=== PATIENT | female | born 1960 | race Caucasian/White ===

== ENCOUNTER 2020-11-26 09:59 | Outpatient (REF) | payer OTHER, SELFPAY ==
[2020-11-26 11:06] LABS: MANUAL DIFF FLAG NO
[2020-11-26 11:10] LABS: Basophils Absolute Auto 0.1 X10*3/uL (0.0-0.2); Basophils Percent Auto 0.8 % (0-2); Eosinophils Absolute Auto 0.3 X10*3/uL (0.0-0.4); Eosinophils Percent Auto 2.9 % (0-4); Hematocrit 39.7 % (37-47); Hemoglobin 13.7 g/dl (12.0-16.0); Imm Gran Abs Auto 0.02 X10*3/uL (0.00-0.03); Imm Gran Pct Auto 0.2 % (0.0-0.4); Lymphocytes Absolute Auto 2.6 X10*3/uL (1.2-4.9); Lymphocytes Percent Auto 29.3 % (20-40); Mean Corpuscular HGB Conc 34.5 g/dl (31.0-35.0); Mean Corpuscular Hemoglobin 30.9 pg (27.0-33.0); Mean Corpuscular Volume 89.6 fL (80-98); Mean Platelet Volume 10.3 fL (9.4-12.3); Monocytes Absolute Auto 0.7 X10*3/uL (0.1-1.2); Monocytes Percent Auto 7.9 % (2-11); Neutrophils Absolute Auto 5.1 X10*3/uL (2.0-8.3); Neutrophils Percent Auto 58.9 % (45-73); Platelet Count 284 X10*3/uL (160-400); Red Blood Count 4.43 X10*6/uL (4.20-5.50); Red Cell Distribution Width 12.4 % (11.0-16.0); White Blood Count 8.7 X10*3/uL (4.8-10.8)
[2020-11-26 11:39] LABS: Alanine Aminotransferase 45 U/L (0-31); Albumin Level 4.4 g/dL (3.5-5.0); Alkaline Phosphatase 76 U/L (39-117); Anion Gap 11 (12-20); Aspartate Amino Transferase 30 U/L (5-31); Bilirubin Total 0.9 mg/dL (0.0-1.0); Blood Urea Nitrogen 10 mg/dL (9-16); Calcium 9.5 mg/dL (8.4-10.2); Carbon Dioxide 28 mmol/L (22-29); Chloride 107 mmol/L (96-108); Cholesterol 149 mg/dL; Estimated Glomerular Filt Rate > 60; Glucose Fasting 105 mg/dL (60-99); HDL Cholesterol 38 mg/dL; LDL Cholesterol Calculated 90 mg/dl; Potassium 4.6 mmol/L (3.3-5.1); Sodium 141 mmol/L (135-145); Total Protein 7.1 g/dL (6.5-8.0); Triglycerides 106 mg/dL
[2020-11-26 12:02] LABS: Vitamin D 25-OH Total 47.3 ng/mL (>30)
== END 2020-11-26 10:00 | disposition home or self-care (01) ==
LOC: HO.LAB 09:59
PROVIDERS: PCP Internal Medicine; Visit Provider Internal Medicine
DX: Z00.00 Encounter for general adult medical examination without abnormal findings (principal); E55.9 Vitamin D deficiency, unspecified
CPT/HCPCS: 36415; 80053; 80061; 82306; 85025

== ENCOUNTER 2021-02-22 07:19 | Outpatient (REF) | payer OTHER, SELFPAY ==
--- NOTE | ~2021-02-22 | MM_ITS ---
EXAMINATION: MM SCREENING DIGITAL BREAST TOMOSYNTHESIS, BILATERAL CLINICAL INFORMATION: Screening. Asymptomatic. The lifetime risk of breast cancer based on the Tyrer-Cuzick Model is 8%. COMPARISON: Mammography: 02/17/2020, 02/11/2019, 11/11/2016; bilateral targeted breast ultrasound 02/19/2020. TECHNIQUE: Digital breast tomosynthesis is performed in both the craniocaudal and mediolateral oblique views along with computer-aided detection (CAD). Synthesized 2D images are generated from the tomosynthesis. FINDINGS: The breasts are heterogeneously dense, which may obscure small masses (ACR BI-RADS breast composition Category c). There is fine fibronodular parenchymal pattern with parenchymal distribution is similar to prior studies. There is no interval significant mass or architectural abnormality. Again, there are benign appearing smooth circumscribed masses at posterior central 4:00 left breast with adjacent satellite cyst and retroareolar right breast. There are diffuse scattered bilateral similar appearing round and some coarse calcifications, more numerous on left. Calcifications are slightly increased since 2019. No focal grouping. The axilla and skin contours are unremarkable. No significant changes from prior exam. MM/MM tomosynthesis screening BI IMPRESSION: No mammographic evidence of malignancy. ASSESSMENT: BI-RADS 2: Benign RECOMMENDATION: Routine annual mammography screening. This patient's information was entered into a reminder system with a target due date for their next mammogram.
== END 2021-02-22 07:20 | disposition home or self-care (01) ==
LOC: HO.MAMMO 07:19
PROVIDERS: PCP Internal Medicine; Visit Provider Internal Medicine
DX: Z12.31 Encounter for screening mammogram for malignant neoplasm of breast (principal)
CPT/HCPCS: 77063; 77067

== ENCOUNTER 2021-10-20 15:36 | Outpatient (REF) | payer OTHER, SELFPAY ==
[2021-10-20 16:22] LABS: Influenza A PCR NEGATIVE (Negative); Influenza B PCR NEGATIVE (Negative); Resp Syncy Virus RNA Qual PCR NEGATIVE (Negative); SARS COV2 PCR INHOUSE NEGATIVE (Negative)
== END 2021-10-20 15:37 | disposition home or self-care (01) ==
LOC: HO.LNP 15:36
PROVIDERS: Visit Provider Internal Medicine
DX: Z20.822 Contact with and (suspected) exposure to COVID-19 (principal); R05.9 Cough, unspecified
CPT/HCPCS: 0241U

== ENCOUNTER 2022-02-28 07:18 | Outpatient (REF) | payer OTHER, SELFPAY ==
--- NOTE | ~2022-02-28 | MM_ITS ---
EXAMINATION: MM SCREENING DIGITAL BREAST TOMOSYNTHESIS, BILATERAL CLINICAL INFORMATION: Screening. Asymptomatic. The lifetime risk of breast cancer based on the Tyrer-Cuzick Model is 0.9%. COMPARISON: Mammography: February 22, 2021 and studies dating back to September 06, 2012 TECHNIQUE: Digital breast tomosynthesis is performed in both the craniocaudal and mediolateral oblique views along with computer-aided detection (CAD). Synthesized 2D images are generated from the tomosynthesis. Additional left breast exaggerated craniocaudal view performed. FINDINGS: The breasts are extremely dense, which lowers the sensitivity of mammography (ACR BI-RADS breast composition Category d). There is stable multiplicity and bilaterality of calcifications. There are some circumscribed waxing and waning densities present consistent with cysts. No new suspicious dominant mass or suspicious grouping of calcifications is identified. MM/MM tomosynthesis screening BI IMPRESSION: No significant changes from prior exam. ASSESSMENT: BI-RADS 2: Benign RECOMMENDATION: Routine annual mammography screening. This patient's information was entered into a reminder system with a target due date for their next mammogram.
== END 2022-02-28 07:19 | disposition home or self-care (01) ==
LOC: HO.MAMMO 07:18
PROVIDERS: PCP Internal Medicine; Visit Provider Internal Medicine
DX: Z12.31 Encounter for screening mammogram for malignant neoplasm of breast (principal)
CPT/HCPCS: 77063; 77067

== ENCOUNTER 2022-07-28 08:07 | Outpatient (REF) | payer OTHER, SELFPAY ==
[2022-07-28 08:19] LABS: MANUAL DIFF FLAG NO
[2022-07-28 08:50] LABS: Basophils Absolute Auto 0.1 X10*3/uL (0.0-0.2); Basophils Percent Auto 1.1 % (0-2); Eosinophils Absolute Auto 0.9 X10*3/uL (0.0-0.4); Eosinophils Percent Auto 9.7 % (0-4); Hematocrit 40.8 % (37.0-47.0); Hemoglobin 14.3 g/dl (12.0-16.0); Imm Gran Abs Auto 0.03 X10*3/uL (0.00-0.03); Imm Gran Pct Auto 0.3 % (0.0-0.4); Lymphocytes Absolute Auto 3.1 X10*3/uL (1.2-4.9); Lymphocytes Percent Auto 34.7 % (20-40); Mean Corpuscular Hemoglobin 30.2 pg (27.0-33.0); Mean Corpuscular Volume 86.1 fL (80.0-98.0); Mean Platelet Volume 9.9 fL (9.4-12.3); Monocytes Absolute Auto 0.7 X10*3/uL (0.1-1.2); Monocytes Percent Auto 7.2 % (2-11); Neutrophils Absolute Auto 4.3 x10*3/uL (2.0-8.3); Platelet Count 312 X10*3/uL (160-400); Red Blood Count 4.74 X10*6/uL (4.20-5.50); Red Cell Distribution Width 12.2 % (11.0-16.0); White Blood Count 9.1 X10*3/uL (4.8-10.8)
[2022-07-28 09:33] LABS: Alanine Aminotransferase 17 U/L (0-31); Albumin Level 4.4 g/dL (3.5-5.0); Alkaline Phosphatase 76 U/L (39-117); Anion Gap 14 (12-20); Aspartate Amino Transferase 16 U/L (5-31); Bilirubin Total 1.2 mg/dL (0.0-1.0); Blood Urea Nitrogen 10 mg/dL (9-16); Calcium 9.6 mg/dL (8.4-10.2); Carbon Dioxide 27 mmol/L (22-29); Chloride 104 mmol/L (96-108); Cholesterol 149 mg/dL; Estimated Glomerular Filt Rate > 60; Glucose Fasting 104 mg/dL (60-99); HDL Cholesterol 35 mg/dL; LDL Cholesterol Calculated 91 mg/dl; Sodium 141 mmol/L (135-145); Total Protein 7.2 g/dL (6.5-8.0); Triglycerides 116 mg/dL
== END 2022-07-28 08:08 | disposition home or self-care (01) ==
LOC: HO.LAB 08:07
PROVIDERS: PCP Internal Medicine; Visit Provider Internal Medicine
DX: Z00.00 Encounter for general adult medical examination without abnormal findings (principal)
CPT/HCPCS: 36415; 80053; 80061; 85025

== ENCOUNTER → 2022-10-05 08:54 | Outpatient (BNVA) | payer OTHER, SELFPAY | PROVIDERS: PCP Internal Medicine; Referring Provider Internal Medicine; Visit Provider Surgery | DX: Z13.89 Encounter for screening for other disorder (principal) ==

== ENCOUNTER 2022-11-07 06:06 | Day surgery (SDC) | payer OTHER, SELFPAY ==
[2022-11-02 15:45] VITALS: BMI 37.7
--- NOTE | 2022-11-06 09:01 | P.CONAN_ITS ---
Documented by User: Nita Deng NP 11/06/22 09:03 HPI - Anesthesia Eval Consult details Narrative: 62yo F for Colonoscopy with possible polypectomy PMFSH Active Problems Active Problems: All Active Problems (Updated 10/05/22 @ 09:09 by Ori Vasquez MD) Colon cancer screening (Acute) Past Medical History Medical History (Updated 11/07/22 @ 06:27 by Vicenta Eng RN) Colon cancer screening HTN (hypertension) Hyperlipemia Seasonal asthma Surgical History Surgical History (Updated 11/07/22 @ 06:28 by Vicenta Eng RN) Hx of colonoscopy Hx of foot surgery Social History Social History (Updated 10/05/22 @ 09:04 by Taty Braswell CMA) Household Members: Children Alcohol intake: current Alcohol intake frequency: holidays/special occasions only Patient Tobacco Use Status: Never used Tobacco Are you DNR?: No Advance Directives: No Advance Directives Information Provided: Yes Meds Allergies Allergy/AdvReac Type Severity Reaction Status Date / Time No Known Allergies Allergy Unverified 10/05/22 09:05 Home Medications Medication Instructions Recorded Confirmed Last Taken Type albuterol sulfate 90 mcg/actuation 2 puff inhalation QID PRN Wheezing 10/05/22 10/05/22 11/07/22 History aerosol inhaler atorvastatin 10 mg tablet 10 mg PO DAILY 10/05/22 10/05/22 11/06/22 History clobetasol 0.05 % topical ointment g topical BID 10/05/22 10/05/22 11/05/22 History lisinopril 10 mg tablet 10 mg PO DAILY 10/05/22 10/05/22 11/06/22 History zolpidem 10 mg tablet 10 mg PO 10/05/22 10/05/22 11/05/22 History Exam Exam Date and Time: November 06, 2022 09 Height,Weight and Vital Signs: Height 5 ft 9.5 in Weight 117.48 kg Pertinent Lab Results Pertinent Lab Results: Laboratory Tests 07/28/22 07/28/22 08:18 08:18 WBC 9.1 Hgb 14.3 Hct 40.8 Plt Count 312 Sodium 141 Potassium 4.0 Chloride 104 Carbon Dioxide 27 BUN 10 Creatinine 0.95 Assessment and Plan Assessment Anesthesia Assessment: Chart Reviewed Documented by User: Sam Lowe MD 11/07/22 07:39 [facility] Past Medical History Medical History (Updated 11/07/22 @ 06:27 by Vicenta Eng RN) Colon cancer screening HTN (hypertension) Hyperlipemia Seasonal asthma Family History Family history of problems with anesthesia: No Surgical History Surgical History (Updated 11/07/22 @ 06:28 by Vicenta Eng RN) Hx of colonoscopy Hx of foot surgery History of Problems with Anesthesia: No Social History Social History (Updated 10/05/22 @ 09:04 by Taty Braswell CMA) Household Members: Children Alcohol intake: current Alcohol intake frequency: holidays/special occasions only Patient Tobacco Use Status: Never used Tobacco Are you DNR?: No Advance Directives: No Advance Directives Information Provided: Yes Meds Allergies Allergy/AdvReac Type Severity Reaction Status Date / Time No Known Allergies Allergy Unverified 10/05/22 09:05 Home Medications Medication Instructions Recorded Confirmed Last Taken Type albuterol sulfate 90 mcg/actuation 2 puff inhalation QID PRN Wheezing 10/05/22 10/05/22 11/07/22 History aerosol inhaler atorvastatin 10 mg tablet 10 mg PO DAILY 10/05/22 10/05/22 11/06/22 History clobetasol 0.05 % topical ointment g topical BID 10/05/22 10/05/22 11/05/22 History lisinopril 10 mg tablet 10 mg PO DAILY 10/05/22 10/05/22 11/06/22 History zolpidem 10 mg tablet 10 mg PO 10/05/22 10/05/22 11/05/22 History Exam Airway Mallampati Class: I TM Dist: >3cm Neck ROM: Full Heart: ok Lungs: ok Assessment and Plan Assessment Anesthesia Assessment: Anesthesia Plan Discussed Final Anesthetic Review Family History of Problems with Anesthesia: No History of Problems with Anesthesia: No NPO: Yes ASA Class: II Final Preanesthetic Review: No Changes in Pt Med Stat, Meds/Allgs Chart Reviewed, Consent Obtained/Reviewed and Anes Risks/Benef Reviewed Patient Risk: Intermediate Procedure Risk: Low Anesthetic Plan Anesthetic Plan: MAC: and Agree w/ Assess. and Plan Disposition: Standard PACU
[2022-11-07 06:10] VITALS: BP 113/84; PULSE 110; RESP 20; TEMP 36.6; O2SAT 97
[2022-11-07] MEDS: Lactated Ringers 1,000 ML 100 ML IVCONT (06:36)
--- NOTE | 2022-11-07 07:12 | MHC.SHP ---
Pre-Procedural Eval Section A Date of Service: 11/07/22 Section B Chief Complaint: Encounter for screening for malignant neoplasm of Details of Present Illness: for screening colonoscopy, no GI complaints Relevant Family History (Specify if Yes): No Relevant Social History: None Present Medications: see Short Stay Collaborative assessment Medical History: Significant History (HTN, hyperlipidemia) Allergies: Allergies Allergy/AdvReac Type Severity Reaction Status Date / Time No Known Allergies Allergy Unverified 10/05/22 09:05 Review of Systems Sugical H&P ROS: Negative: Constitution, Cardiovascular, Respiratory, Neurological, Psychiatric, Hem-Onc, Allergic/Immunologic, Gastrointestinal, Genitourinary, Musculoskeletal, Integumentary, Endocrine and Eyes/Ears/Nose/Throat Exam Surgical H&P Exam: Normal: HEENT, Normal: Heart, Normal: Lungs, Normal: Extremities, Normal: Abdomen, Normal: Skin and Normal: Neurological Plan Diagnosis/Plan: Unchanged I have reviewed the history and physical and performed a pertinent physical examination on my patient. No changes have occurred unless specified. Time Spent With Patient Time: Total time managing care of this patient today ____ minutes.
--- NOTE | 2022-11-07 07:55 | W.PM.OPN ---
Operative Note Operative Note Date of Service: 11/07/22 Narrative: Preop diagnosis: Colon cancer screening Postop diagnosis: Normal colonoscopy findings Procedure: Colonoscopy for screening Surgeon: Ori Vasquez MD The patient is a 62-year-old female here for screening colonoscopy. She understood the technique of the procedure. She was aware of the risks, benefits, and alternatives She was brought to the operating room. She was placed in left lateral decubitus position under monitored anesthesia care. A full digital rectal exam was done. There were no palpable anal lesions. The tip of the Olympus colonoscope was gently introduced through the anal orifice and advanced with insufflation all the way to the cecum. The cecum was intubated. The cecum was identified by visualization of the ileocecal valve as well as the appendiceal orifice. The cecal mucosa was unremarkable. The scope was slowly withdrawn with careful examination of the entire colonic mucosa being done with scope withdrawal. The patient had good bowel prep so it was unlikely that any lesion may have been missed. The rectum was reached. There were no lesions seen we the anal canal was unremarkable. The scope was then withdrawn completely with desufflation The patient tolerated the procedure well. There were no immediate complications. She falls at average risk for colon cancer so her next colonoscopy may be in the next 10 years..
[2022-11-07 08:01] VITALS: BP 92/58; PULSE 85; RESP 18; TEMP 36.4; O2SAT 94
[2022-11-07 08:16] VITALS: BP 111/75; PULSE 75; RESP 16; TEMP 35.9; O2SAT 95
== END 2022-11-07 08:44 | disposition home or self-care (01) ==
PROVIDERS: PCP Internal Medicine; Visit Provider Surgery
PROC: 0DJD8ZZ Inspection of Lower Intestinal Tract, Via Natural or Artificial Opening Endoscopic (ICD-10-PCS; CPT 45378; principal; 2022-11-07 07:30)
DX: Z12.11 Encounter for screening for malignant neoplasm of colon (principal); I10 Essential (primary) hypertension; E78.5 Hyperlipidemia, unspecified; J45.909 Unspecified asthma, uncomplicated; Z79.899 Other long term (current) drug therapy
CPT/HCPCS: 45378

== ENCOUNTER → 2022-11-20 10:28 | Outpatient (BNVA) | payer OTHER, SELFPAY | PROVIDERS: PCP Internal Medicine; Visit Provider Surgery ==

== ENCOUNTER 2023-03-09 07:36 | Outpatient (REF) | payer OTHER, SELFPAY ==
--- NOTE | ~2023-03-09 | MM_ITS ---
EXAMINATION: MM SCREENING DIGITAL BREAST TOMOSYNTHESIS, BILATERAL CLINICAL INFORMATION: Screening. Asymptomatic. COMPARISON: Mammography: This study is compared with prior exams dating back to 2019. TECHNIQUE: Digital breast tomosynthesis is performed in both the craniocaudal and mediolateral oblique views along with computer-aided detection (CAD). Synthesized 2D images are generated from the tomosynthesis. FINDINGS: The breasts are heterogeneously dense, which may obscure small masses (ACR BI-RADS breast composition Category c). There are no significant masses, abnormal calcifications, or other abnormalities. There are a few, bilateral, well-circumscribed, waxing and waning masses which are benign and consistent with cysts. There are scattered benign calcifications in each breast. MM/MM tomosynthesis screening BI IMPRESSION: No mammographic evidence of malignancy. ASSESSMENT: BI-RADS BI-RADS 2 - Benign Findings RECOMMENDATION: Routine annual mammography screening. 1 year F/U This examination should not preclude the clinical evaluation of a suspicious palpable abnormality. This patient's information was entered into a reminder system with a target due date for their next mammogram.
== END 2023-03-09 07:37 | disposition home or self-care (01) ==
LOC: HO.MAMMO 07:36
PROVIDERS: PCP Internal Medicine; Visit Provider Internal Medicine
DX: Z12.31 Encounter for screening mammogram for malignant neoplasm of breast (principal)
CPT/HCPCS: 77063; 77067

== ENCOUNTER → 2023-03-09 07:45 | Outpatient (BNV) | payer OTHER, SELFPAY | PROVIDERS: PCP Internal Medicine; Visit Provider Radiology Diagnostic Radiology | DX: Z12.31 Encounter for screening mammogram for malignant neoplasm of breast (principal) | CPT/HCPCS: 77063; 77067 ==

== ENCOUNTER 2023-07-27 14:05 | Outpatient (REF) | payer OTHER, SELFPAY ==
--- NOTE | ~2023-07-27 | XR_ITS ---
EXAMINATION: XR CHEST CLINICAL INFORMATION: Right chest wall pain. COMPARISON: 04/23/2015. TECHNIQUE: 2 views of the chest were obtained. FINDINGS: Redemonstration of low lung volumes. There is no gross pneumothorax. S-shaped thoracolumbar scoliosis with multilevel degenerative changes. Heart size upper limits of normal allowing for low lung volumes. No pleural effusion. Increased retrocardiac opacity, best appreciated on the lateral view, possibly representing pneumonia. XR/XR chest 2V IMPRESSION: Increased retrocardiac opacity, best appreciated on the lateral view, possibly representing pneumonia. Correlation with clinical exam recommended to determine further management. Recommend follow-up imaging in 4-6 weeks to confirm resolution and exclude underlying pathology. This study was presented today July 31, 2023 for interpretation. PSA staff will provide results to referring provider at this time.
--- NOTE | ~2023-07-27 | XR_ITS ---
EXAMINATION: XR SHOULDER, RIGHT CLINICAL INFORMATION: Right shoulder pain COMPARISON: None available. TECHNIQUE: AP external rotation, Grashey, scapular Y, and axillary views of the right shoulder. FINDINGS: Acromioclavicular joint space narrowing. No fracture or dislocation. Visualized ribs and right lung are unremarkable. XR/XR shoulder RT min 2V IMPRESSION: Degenerative change right AC joint. No acute bony pathology.
== END 2023-07-27 14:06 | disposition home or self-care (01) ==
LOC: HO.XRAY 14:05
PROVIDERS: PCP Internal Medicine; Visit Provider Internal Medicine
DX: R07.89 Other chest pain (principal); M25.511 Pain in right shoulder
CPT/HCPCS: 71046; 73030

== ENCOUNTER 2023-08-09 07:34 | Outpatient (REF) | payer OTHER, SELFPAY ==
[2023-08-09 11:14] LABS: MANUAL DIFF FLAG NO
[2023-08-09 11:47] LABS: Basophils Absolute Auto 0.1 X10*3/uL (0.0-0.2); Basophils Percent Auto 1.2 % (0-2); Eosinophils Absolute Auto 0.3 X10*3/uL (0.0-0.4); Eosinophils Percent Auto 3.3 % (0-4); Estimated Average Glucose 108 mg/dL; Hematocrit 40.1 % (37.0-47.0); Hemoglobin 13.7 g/dl (12.0-16.0); Hemoglobin A1c % 5.4 % (<6.0); Imm Gran Abs Auto 0.02 X10*3/uL (0.00-0.03); Imm Gran Pct Auto 0.3 % (0.0-0.4); Lymphocytes Absolute Auto 2.6 X10*3/uL (1.2-4.9); Lymphocytes Percent Auto 34.8 % (20-40); Mean Corpuscular HGB Conc 34.2 g/dl (31.0-35.0); Mean Corpuscular Hemoglobin 30.1 pg (27.0-33.0); Mean Corpuscular Volume 88.1 fL (80.0-98.0); Monocytes Absolute Auto 0.6 X10*3/uL (0.1-1.2); Monocytes Percent Auto 8.2 % (2-11); Neutrophils Percent Auto 52.2 % (45-73); Platelet Count 283 X10*3/uL (160-400); Red Blood Count 4.55 X10*6/uL (4.20-5.50); Red Cell Distribution Width 12.5 % (11.0-16.0); White Blood Count 7.6 X10*3/uL (4.8-10.8)
[2023-08-09 12:09] LABS: Alanine Aminotransferase 19 U/L (0-31); Albumin Level 4.1 g/dL (3.5-5.0); Alkaline Phosphatase 79 U/L (39-117); Anion Gap 11 (12-20); Aspartate Amino Transferase 17 U/L (5-31); Bilirubin Total 0.8 mg/dL (0.0-1.0); Blood Urea Nitrogen 13 mg/dL (9-16); Calcium 9.4 mg/dL (8.4-10.2); Carbon Dioxide 29 mmol/L (22-29); Chloride 107 mmol/L (96-108); Cholesterol 133 mg/dL (<200); Estimated Glomerular Filt Rate > 60; Glucose Fasting 103 mg/dL (60-99); HDL Cholesterol 42 mg/dL (>40); LDL Cholesterol Calculated 76 mg/dL (<100); Potassium 4.2 mmol/L (3.3-5.1); Sodium 143 mmol/L (135-145); Total Protein 7.1 g/dL (6.5-8.0); Triglycerides 76 mg/dL (<150)
[2023-08-09 12:31] LABS: Vitamin D 25-OH Total 43.6 ng/mL (>30)
== END 2023-08-09 07:35 | disposition home or self-care (01) ==
LOC: HO.HMGCLDS 07:34
PROVIDERS: PCP Internal Medicine; Visit Provider Internal Medicine
DX: I10 Essential (primary) hypertension (principal); E78.00 Pure hypercholesterolemia, unspecified; K21.9 Gastro-esophageal reflux disease without esophagitis; R73.03 Prediabetes; E55.9 Vitamin D deficiency, unspecified
CPT/HCPCS: 36415; 80053; 80061; 82306; 83036; 85025

== ENCOUNTER 2023-09-06 07:06 | Outpatient (REF) | payer OTHER, SELFPAY ==
--- NOTE | ~2023-09-06 | CT_ITS ---
EXAMINATION: CT CHEST WITHOUT CONTRAST CLINICAL INFORMATION: Pain in the right chest wall COMPARISON: None available. TECHNIQUE: Multidetector volumetric CT imaging of the chest was done. Axial MIP volume rendering provided. Sagittal and coronal reformatted images were obtained. This CT examination was performed using dose optimization techniques as appropriate, variously including the following: *Automated exposure control *Adjustment of mA and/or kV according to patient size (this includes techniques or standardized protocols for targeted exams where dose is matched to indication/reason for exam; i.e. extremities or head) *Use of iterative reconstruction technique DLP: 228 mGy-cm FINDINGS: CAREER SERVICES OFFICER: Unremarkable LUNGS: The lungs are clear with no evidence of inflammation or nodules. MEDIASTINUM: The mediastinum is normal. CORONARY ARTERY CALCIFICATION: None visualized on this study. PLEURA: There is no pleural effusion. No pleural mass or thickening. AXILLA: No lymphadenopathy. UPPER ABDOMEN: The small hiatal hernia. Visualized liver, spleen, adrenal glands, pancreas, liver kidneys are normal. There is cholelithiasis. OSSEOUS STRUCTURES: Mild degenerative changes in thoracic spine with mild kyphotic deformity CT/CT chest wo IV con IMPRESSION: 1. No abnormal findings in the chest. 2. Cholelithiasis. 3. Small hiatal hernia. Fleischner guidelines were followed.
== END 2023-09-06 07:07 | disposition home or self-care (01) ==
LOC: HO.CT 07:06
PROVIDERS: PCP Internal Medicine; Visit Provider Internal Medicine
DX: R07.89 Other chest pain (principal)
CPT/HCPCS: 71250

== ENCOUNTER 2024-01-15 08:14 | Outpatient (AMB) | payer OTHER, SELFPAY ==
[2024-01-15 08:16] VITALS: BP 142/84; PULSE 100; TEMP 36.6; O2SAT 94; BMI 36.5
--- NOTE | 2024-01-15 08:16 | MHC.OFFWIV ---
Intake Vital Signs 01/15/24 08:16 Height 5 ft 9.5 in Weight 251 lb 2 oz BMI 36.5 BP 142/84 H Blood Pressure Location Lt brachial Position Sitting Pulse 100 Pulse Source Pulse Oximeter Temp 97.9 F Temp Source Temporal Artery Scan Pulse Oximetry (%) 94 Oxygen Delivery Method Room Air Intake Visit Reasons: EP rt foot pain fell last night Intake Note: pt is here for right foot pain due to fall last night Patient Tobacco Use Status: Never used Tobacco Allergies No Known Allergies Allergy (Verified 01/15/24 08:16) Do you need a note to return to daycare/school/sports/work: No HPI HPI Comments History of Present Illness Details Patient is a 63-year-old female complaining of right foot pain after sustaining a fall last night. Patient states she was chasing her dog into the [place] and she tripped and fell, injuring her right ankle and the right side of her foot. She is able to walk on it but it is extremely painful. She said it was very painful as initially did not last night and it has stayed that way. She denies a lot of swelling in the area and has not really done anything to make it better. Walking on it makes it worse. PFSH Medical History Colon cancer screening HTN (hypertension) Hyperlipemia Seasonal asthma Surgical History Hx of colonoscopy (~11/07/22) Hx of foot surgery Social History Household Members: Children Alcohol intake: current Alcohol intake frequency: holidays/special occasions only Patient Tobacco Use Status: Never used Tobacco Review of Systems Const All systems reviewed & are unremarkable except as noted in HPI and below Physical Exam Vital Signs: Last Vital Signs Temp 97.9 F 01/15/24 08:16 Pulse 100 01/15/24 08:16 BP 142/84 H 01/15/24 08:16 Pulse Ox 94 01/15/24 08:16 Oxygen Delivery Method Room Air 01/15/24 08:16 BMI result Body Mass Index 36.5 Const General: cooperative, healthy appearing, comfortable and no acute distress Orientation/consciousness: patient oriented x3 Limitations: other limitations (gingerly walking, favoring left foot) HEENT Head: Yes normal to inspection Resp Effort & Inspection: normal respiratory effort and able to speak in complete sentences Neuro General: patient oriented x3 Extrem Right lower extremity: foot Details: normal capillary refill, normal to inspection, tenderness Location: of the lateral foot, of the mid foot and of the base of the 5th metatarsal, toes with normal ROM, no edema, vascular exam Details: dorsalis pedis pulse present, posterior tibial pulse present and normal capillary refill and motor-sensory exam Details: light-touch normal; no unusual warmth, no abrasion, no laceration and no ecchymosis Assessment & Plan Assessment & Plan (1) Right foot pain: Code(s): M79.671 - Pain in right foot Plan: No fracture seen on x-ray, still waiting for final read by radiologist. Did fit patient for a boot because she was having difficulty walking on it. Recommended RICE treatment and follow-up with PCP if pain continues for orthopedics referral (2) Fall: Code(s): W19.XXXA - Unspecified fall, initial encounter Qualifiers: Encounter type: initial encounter Qualified Code(s): W19.XXXA - Unspecified fall, initial encounter Plan: see above (3) Right foot sprain: Code(s): S93.601A - Unspecified sprain of right foot, initial encounter Qualifiers: Encounter type: initial encounter Qualified Code(s): S93.601A - Unspecified sprain of right foot, initial encounter Plan: see above Plan see above Orders: Orders XR foot RT min 3V Today M79.671 - Pain in right foot, W19.XXXA - Unspecified fall, initial encounter Coding Level of Care Code Est Pt Level 4 (50913) Diagnoses Right foot pain M79.671 Fall, initial encounter W19.XXXA Encounter type: initial encounter Sprain of right foot, initial encounter S93.601A Encounter type: initial encounter
== END 2024-01-15 09:02 | disposition home or self-care (01) ==
PROVIDERS: PCP Internal Medicine; Visit Provider Physician Assistant
DX: M79.671 Pain in right foot (principal); W19.XXXA Unspecified fall, initial encounter; S93.601A Unspecified sprain of right foot, initial encounter
CPT/HCPCS: 99214

== ENCOUNTER 2024-01-15 08:37 | Outpatient (REF) | payer OTHER, SELFPAY ==
--- NOTE | ~2024-01-15 | XR_ITS ---
EXAMINATION: XR FOOT, RIGHT CLINICAL INFORMATION: Pain COMPARISON: None available. TECHNIQUE: AP, lateral, and oblique views of the right foot. FINDINGS: No acute visible fracture or dislocation. Mild multi joint arthritic changes. Plantar calcaneal heel spur. Spurring along the dorsal talus. Joint space alignment otherwise maintained. Soft tissue prominence along the plantar aspect of the metatarsophalangeal joints. XR/XR foot RT min 3V IMPRESSION: 1. No acute visible fracture or dislocation. 2. Mild multi joint arthritic changes. 3. Soft tissue prominence along the plantar aspect of the metatarsophalangeal joints.
== END 2024-01-15 08:38 | disposition home or self-care (01) ==
LOC: HO.HMGCX 08:37
PROVIDERS: PCP Internal Medicine; Visit Provider Physician Assistant
DX: M79.671 Pain in right foot (principal); Z91.81 History of falling
CPT/HCPCS: 73630

== ENCOUNTER 2024-03-17 07:39 | Outpatient (REF) | payer OTHER, SELFPAY ==
--- NOTE | ~2024-03-17 | MM_ITS ---
EXAMINATION: MM SCREENING DIGITAL BREAST TOMOSYNTHESIS, BILATERAL CLINICAL INFORMATION: Screening. Asymptomatic. COMPARISON: Mammography: Comparison is made with available priors TECHNIQUE: Digital breast mammography with tomosynthesis is performed in both the craniocaudal and mediolateral oblique views along with computer-aided detection (CAD). FINDINGS: The breasts are heterogeneously dense, which may obscure small masses (ACR BI-RADS breast composition Category c). Bilateral circumscribed oval masses which wax and wane consistent with benign cysts and fibrocystic changes, some were demonstrated to be simple cysts on prior ultrasounds. Left: There are no significant masses, abnormal calcifications, or other abnormalities. Right: Asymmetry superior breast posterior depth on the MLO view. No suspicious calcifications or other abnormal findings. MM/MM tomosynthesis screening BI IMPRESSION: No mammographic evidence of malignancy. ASSESSMENT: BI-RADS BI-RADS 0 - Incomplete: Needs additional Imaging. RECOMMENDATION: 1. Additional views of the right breast 2. Targeted ultrasound if warranted after review of the additional views. 3. Radiology department staff will contact the patient for additional imaging. Additional Imaging required This examination should not preclude the clinical evaluation of a suspicious palpable abnormality. This patient's information was entered into a reminder system with a target due date for their next mammogram. Electronically signed by: Maria Kemp DO 03/31/2024 06:18 AM EDT
== END 2024-03-17 07:40 | disposition home or self-care (01) ==
LOC: HO.MAMMO 07:39
PROVIDERS: PCP Internal Medicine; Visit Provider Internal Medicine
DX: Z12.31 Encounter for screening mammogram for malignant neoplasm of breast (principal)
CPT/HCPCS: 77063; 77067

== ENCOUNTER → 2024-03-17 07:45 | Outpatient (BNV) | payer OTHER, SELFPAY | PROVIDERS: PCP Internal Medicine; Visit Provider Internal Medicine | DX: Z12.31 Encounter for screening mammogram for malignant neoplasm of breast (principal) | CPT/HCPCS: 77063; 77067 ==

== ENCOUNTER 2024-05-21 13:48 | Outpatient (REF) | payer OTHER, SELFPAY ==
--- NOTE | ~2024-05-21 | MM_ITS ---
EXAMINATION: MM DIAGNOSTIC DIGITAL BREAST TOMOSYNTHESIS, RIGHT US BREAST LIMITED, RIGHT MAMMOGRAPHY: CLINICAL INFORMATION: Diagnostic exam; follow-up for one view asymmetry far posterior upper right breast, overlying the pectoralis muscle, seen on screening mammography with no definite CC correlate although localizes laterally on tomographic imaging. COMPARISON: Mammography: Screening mammography 03/17/2024, and prior exams dating back to 2017. TECHNIQUE: Digital breast tomosynthesis is performed in the following views: 3-D full field digital right ML view, as well as a spot compression 3-D right MLO view. Computer-aided diagnosis was used for this study. This was followed by targeted right breast ultrasound. FINDINGS: The breasts are heterogeneously dense, which may obscure small masses (ACR BI-RADS breast composition Category c). This study is limited by the extensive somewhat nodular and heterogeneously dense breast tissue. Spot compression views and full field right ML view demonstrate persistence of an 8 mm round isodense circumscribed mass with a few abutting converging lines giving the appearance of possible desmoplasia. In review of older exams, this region could not be found with confidence, likely going to the nature of the underlying parenchyma. We will evaluate this region with ultrasound. ULTRASOUND: CLINICAL INFORMATION: As above. COMPARISON: None relevant. TECHNIQUE: Targeted sonographic evaluation was performed using a high frequency linear transducer. Attention was given to the upper outer quadrant of the right breast posterior depth. Selected archived documentation. FINDINGS: RIGHT BREAST: In the 10:00 axis, 15 cm nipple, there is a near anechoic cystic area measuring 0.7 x 0.3 x 0.4 cm, correlating well with the mammographic index focus of concern. This stressors no internal color Doppler flow, no posterior features or enhancement, no abutting parenchymal distortion or echogenic fatty changes, wider than tall, with circumscribed margins. This has features highly suggestive of a region of fat necrosis, with predominantly benign ultrasound features. Recommend six-month interval follow-up targeted right breast ultrasound to ensure stability of this probably benign finding. There are no additional abnormalities noted in this region. MM/MM tomosynthesis added views R IMPRESSION: -No findings suspicious for malignancy right breast. -Probably benign focus of cystic fat necrosis measuring 7 x 3 x 4 mm in the 10:00 axis of the right breast, 15 cm from the nipple. This has predominantly benign ultrasound features, and follow-up targeted right breast ultrasound and right diagnostic mammography (spot compression right MLO view, and full-field 3-D ML view) in 6 months is recommended to ensure stability. OVERALL ASSESSMENT: Mammography: BI-RADS 3 - Probably benign finding(s) - 12 month follow-up suggested Ultrasound: BI-RADS 3 - Probably benign finding(s) - 12 month follow-up suggested RECOMMENDATION: 6 Month F/U This patient's information was entered into a reminder system with a target due date for their next mammogram. Electronically signed by: Brown Jones MD 05/21/2024 03:09 PM [facility]
== END 2024-05-21 13:49 | disposition home or self-care (01) ==
LOC: HO.MAMMO 13:48
PROVIDERS: PCP Internal Medicine; Visit Provider Internal Medicine
DX: N64.89 Other specified disorders of breast (principal)
CPT/HCPCS: 76642; 77061; 77065

== ENCOUNTER → 2024-05-21 14:00 | Outpatient (BNV) | payer OTHER, SELFPAY | PROVIDERS: PCP Internal Medicine; Visit Provider Radiology Diagnostic Radiology | DX: N60.01 Solitary cyst of right breast (principal) | CPT/HCPCS: 76642; 77061; 77065 ==

== ENCOUNTER 2024-11-19 13:00 | Outpatient (REF) | payer OTHER, SELFPAY ==
--- NOTE | ~2024-11-19 | MM_ITS ---
EXAMINATION: MM DIAGNOSTIC DIGITAL BREAST TOMOSYNTHESIS, BILATERAL CLINICAL INFORMATION: 6 month follow-up for asymmetry in the superior right breast on MLO view with questioned hypoechoic sonographic correlate at 10:00 15 cm from the nipple. COMPARISON: Mammography: Priors on PACS. TECHNIQUE: Digital breast tomosynthesis is performed in both the craniocaudal and mediolateral oblique views along with computer-aided detection (CAD). Synthesized 2D images are generated from the tomosynthesis. FINDINGS: The breasts are heterogeneously dense, which may obscure small masses (ACR BI-RADS breast composition Category c). Previously seen asymmetry in the superior right breast posterior depth on MLO view is less conspicuous compared with priors. No suspicious calcifications or other abnormal findings. Targeted color Doppler ultrasound scanning in the upper outer quadrant demonstrates normal fibronodular breast tissue. There is no sonographic abnormality. MM/MM tomosynthesis diagnostic RT IMPRESSION: Asymmetry superior right breast on MLO view posterior depth without sonographic correlate today and decreased from prior. Recommend 6 month follow-up right breast mammogram when the patient will be due for bilateral mammography to demonstrate resolution or stability. ASSESSMENT: BI-RADS BI-RADS 3 - Probably benign finding(s) - 6 month follow-up suggested RECOMMENDATION: 6 Month F/U Results were provided to the patient at time of visit by the technologist. This patient's information was entered into a reminder system with a target due date for their next mammogram. Electronically signed by: Maria Kemp DO 11/19/2024 02:30 PM EDT
== END 2024-11-19 13:01 | disposition home or self-care (01) ==
LOC: HO.MAMMO 13:00
PROVIDERS: PCP Internal Medicine; Visit Provider Internal Medicine
DX: N64.1 Fat necrosis of breast (principal)
CPT/HCPCS: 76642; 77061; 77065

== ENCOUNTER → 2024-11-19 13:00 | Outpatient (BNV) | payer OTHER, SELFPAY | PROVIDERS: PCP Internal Medicine; Visit Provider Internal Medicine | DX: R92.321 Mammographic fibroglandular density, right breast (principal); N60.21 Fibroadenosis of right breast | CPT/HCPCS: 76642; 77061; 77065 ==

== ENCOUNTER 2024-12-05 09:06 | Outpatient (AMB) | payer OTHER, SELFPAY ==
[2024-12-05 09:09] VITALS: BP 122/76; PULSE 93; TEMP 36.3; O2SAT 97; BMI 38.3
--- NOTE | 2024-12-05 09:09 | A.OFFPC_ITS ---
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 Last seen by pcp aug 2023. CV: on lisinopril, atorvastatin. Blood pressure normal. Denies chest pain. Weight gain despite diet and exercise Anxiety/insomnia: on lorazapem, zolpidem Right hip/pelvic pain deep that radiates around to the lower right back. Happened when she went back to work and increased sitting but no particular injury. Overdue for pap Mammo 11/2024 u/s, needs to return in 6 months Colonoscopy -08/2022 Dr Pedro CAMPOS CONSTITUTIONAL: Denies weight loss, fever and chills. HEENT: Denies changes in vision and hearing. RESPIRATORY: Denies SOB and cough. CV: Denies palpitations and CP GI: Denies abdominal pain, nausea, vomiting and diarrhea. : Denies dysuria and urinary frequency. MSK: see HPI SKIN: Denies rash and pruritus. NEUROLOGICAL: Denies headache PSYCHIATRIC: Denies recent changes in mood. PHYSICAL EXAM: GENERAL: Alert and oriented x 3. NAD EYES: EOMI. Anicteric. HENT: Moist mucous membranes. No scleral icterus. No cervical lymphadenopathy. LUNGS: Clear to auscultation bilaterally. CARDIOVASCULAR: Regular rate and rhythm. No murmur. No JVD. ABDOMEN: Soft, non-tender +bs EXTREMITIES: No edema. Non-tender. SKIN: No rashes or lesions. Warm. NEUROLOGIC: No focal neurological deficits. CN II-XII grossly intact PSYCHIATRIC: Cooperative. Appropriate mood and affect [facility] Medical History Seasonal asthma Hyperlipemia HTN (hypertension) Colon cancer screening Surgical History Hx of colonoscopy (~11/07/22) Hx of foot surgery Family History Mother No problems noted. Father No problems noted. Social History Household Members: Children Housing: House Alcohol intake: current Alcohol intake frequency: holidays/special occasions only Patient Tobacco Use Status: Never used Tobacco e-Cigarette/Vaping Use: Never Used service: No Current occupational status: retired Cognitive needs: No Hearing needs: No Vision needs: Yes (rx glasses) Questionnaire PHQ-9 Over the last 2 weeks, how often have you been bothered by any of the following problems? 1. Little interest or pleasure in doing things: not at all 2. Feeling down, depressed, or hopeless: several days 3. Trouble falling or staying asleep, or sleeping too much: not at all 4. Feeling tired or having little energy: nearly every day 5. Poor appetite or overeating: not at all 6. Feeling bad about yourself - or that you are a failure or have let yourself or your family down: not at all 7. Trouble concentrating on things, such as reading the newspaper or watching television: not at all 8. Moving or speaking so slowly that other people could have noticed. Or the opposite - being so fidgety or restless that you have been moving around a lot more than usual: not at all 9. Thoughts that you would be better off or of hurting yourself in some way: not at all Total score: 4 Depression Screening Interpretation: Negative Depression Screening Done: Yes 75550 - PHQ-9 Billing: Yes Source: Developed by Drs. Mario Aguirre, Maria M Parada, Matias Goode and colleagues, with an educational pamela from [employer] ([email or web address]). Thrive Questionnaire Date Thrive assessed: 12/05/24 I am a: Patient Within the past 12 months, did the food you bought not last and you didn't have the money to get more?: Never true Within the past 12 months, did you worry whether your food would run out before you got money to buy more?: Never true Do you have trouble paying for medicines?: No Do you have trouble getting transportation to medical appointments?: No Do you have trouble paying your heating and electricity bill?: No Do you have trouble taking care of your child, family member or friend?: No Do you have trouble with day-to-day activities such as bathing, preparing meals, shopping, managing finances, etc.?: No Are you currently unemployed and looking for a job?: No Are you interested in more education?: No THRIVE Score: 0 AUDIT C Alcohol Use Questionnaire (AUDIT-C) 1. How often do you have a drink containing alcohol?: Monthly or less 3. How often do you have six or more drinks on one occasion?: Less than monthly Total Score: 2 HOLA-7 AMB Questionnaire HOLA-7 Date HOLA - 7 assessed: 12/05/24 Feeling nervous, anxious, or on edge: 1 = Several days Not being able to stop or control worryin = Not at all Worrying too much about different things: 1 = Several days Trouble relaxin = Not at all Being so restless that it is hard to sit still: 0 = Not at all Becoming easily annoyed or irritable: 1 = Several days Feeling afraid as if something awful might happen: 1 = Several days Total HOLA-7 score (0-4 normal; 5-9 mild; 10-14 moderate; 15-21 severe): 4 Source: Developed by Drs. Mario Aguirre, Maria M Parada, Matias Goode and colleagues, with an educational pamela from [employer] ([email or web address]). Physical exam (Primary Care) Vital Signs: Last Vital Signs Temp 97.3 F 12/05/24 09:09 Pulse 93 12/05/24 09:09 BP 122/76 12/05/24 09:09 Pulse Ox 97 12/05/24 09:09 Oxygen Delivery Method Room Air 12/05/24 09:09 BMI result Body Mass Index 38.3 Tobacco/Smoking Status: Tobacco use Status Tobacco use date assessed 12/05/24 12/05/24 09:11 Patient Tobacco Use Status Never used Tobacco 12/05/24 09:11 e-Cigarette/Vaping Use Never Used 12/05/24 09:11 PHQ-9: PHQ-9 Score PHQ-9: Total score 4 12/05/24 09:20 Depression Screening Interpretation: Negative Thrive Assessment: Date of Thrive Assessment Date Thrive assessed 12/05/24 12/05/24 09:11 Coding Level of Care Code New Pt Level 4 (83264) Complex EM visit Add On G2211 Diagnoses Primary hypertension I10 Hypertension type: primary hypertension Hyperlipidemia, unspecified hyperlipidemia type E78.5 Hyperlipidemia type: unspecified Elevated glucose R73.09 Obesity, Class II, BMI 35-39.9 E66.812 Right hip pain M25.551 Additional Codes PHQ-9 - 98705 - PHQ-9 Billing: Yes ([id number]) Assessment & Plan Assessment & Plan (1) HTN (hypertension): Code(s): I10 - Essential (primary) hypertension Category: Medical Qualifiers: Hypertension type: primary hypertension Qualified Code(s): I10 - Essential (primary) hypertension (2) Hyperlipemia: Code(s): E78.5 - Hyperlipidemia, unspecified Category: Medical Qualifiers: Hyperlipidemia type: unspecified Qualified Code(s): E78.5 - Hyperlipidemia, unspecified (3) Elevated glucose: Code(s): R73.09 - Other abnormal glucose Category: Medical (4) Obesity, Class II, BMI 35-39.9: Code(s): E66.812 - Obesity, class 2 Category: Medical (5) Right hip pain: Code(s): M25.551 - Pain in right hip Category: Medical Plan 64 year old female to establish care past medical history, social & family history reviewed Right hip pelvic pain-?iliopsoas bursitis/tendinitis, Femoral cutaneous nerve syndrome, ovarian pain. xray ordered. prednisone x 5 days Labs ordered Blood pressure is well controlled obesity, htn, hld-zepbound ordered. Orders: Orders Comprehensive Met. Panel Today E78.5 - Hyperlipidemia, unspecified, I10 - Essential (primary) hypertension, R73.09 - Other abnormal glucose, Z13.0 - E ncounter for screening for diseases of the blood and blood-forming organs and certain disorders involving the immune mechanism TSH reflex Free T4 Today E78.5 - Hyperlipidemia, unspecified, I10 - Essential (primary) hypertension, R73.09 - Other abnormal glucose, Z13.0 - Encounter for screening for diseases of the blood and blood-forming organs and certain disorders involving the immune mechanism Complete Blood Count Auto Diff Today E78.5 - Hyperlipidemia, unspecified, I10 - Essential (primary) hypertension, R73.09 - Other abnormal glucose, Z13.0 - Encounter for screening for diseases of the blood and blood-forming organs and certain disorders involving the immune mechanism Lipid Panel Today E78.5 - Hyperlipidemia, unspecified, I10 - Essential (primary) hypertension, R73.09 - Other abnormal glucose, Z13.0 - Encounter for screening for diseases of the blood and blood-forming organs and certain disorders involving the immune mechanism Hemoglobin A1c Today E78.5 - Hyperlipidemia, unspecified, I10 - Essential (primary) hypertension, R73.09 - Other abnormal glucose, Z13.0 - Encounter for screening for diseases of the blood and blood-forming organs and certain disorders involving the immune mechanism XR hip RT w PEL1V Today M25.551 - Pain in right hip, R10.2 - Pelvic and perineal pain Referrals [facility] Referral Z12.4 - Encounter for screening for malignant neoplasm of cervix Medications: New gabapentin 300 mg PO BEDTIME 90 caps 3RF lorazepam 0.5 mg PO BID PRN 60 tabs 0RF anxiety Zepbound (tirzepatide (weight loss)) for 4 weeks 2.5 mg (0.5 mL) subcut QWEEK 2 mL 1RF NS E66.812 - Obesity, class 2, E78.5 - Hyperlipidemia, unspecified, I10 - Essential (primary) hypertension ondansetron HCl 4 mg PO Q8H PRN 30 tabs 1RF nausea and vomiting prednisone 40 mg (2 x 20 mg) PO DAILY 10 tabs 0RF
== END 2024-12-05 10:07 | disposition home or self-care (01) ==
LOC: HO.HMCHD 09:07
PROVIDERS: PCP Internal Medicine; Visit Provider Internal Medicine
DX: I10 Essential (primary) hypertension (principal); E78.5 Hyperlipidemia, unspecified; R73.09 Other abnormal glucose; E66.812 Obesity, class 2; M25.551 Pain in right hip

== ENCOUNTER 2024-12-05 09:06 | Outpatient (REF) | payer OTHER, SELFPAY ==
--- NOTE | ~2024-12-05 | XR_ITS ---
EXAMINATION: XR HIP, RIGHT CLINICAL INFORMATION: R10.2 - Pelvic and perineal pain COMPARISON: None available. TECHNIQUE: AP pelvis, and 2 views of the right hip. FINDINGS: No fracture. Alignment is anatomic. Hip joint space is maintained. Soft tissues are unremarkable. XR/XR hip RT w PEL1V IMPRESSION: Normal right hip. Electronically signed by: Brown Jones MD 12/05/2024 12:02 PM EDT
[2024-12-05 10:06] LABS: MANUAL DIFF FLAG NO
[2024-12-05 11:22] LABS: Basophils Absolute Auto 0.1 X10*3/uL (0.0-0.2); Basophils Percent Auto 0.9 % (0-2); Eosinophils Absolute Auto 0.2 X10*3/uL (0.0-0.4); Eosinophils Percent Auto 2.7 % (0-4); Hematocrit 39.6 % (37.0-47.0); Hemoglobin 13.6 g/dl (12.0-16.0); Imm Gran Abs Auto 0.03 X10*3/uL (0.00-0.03); Imm Gran Pct Auto 0.5 % (0.0-0.4); Lymphocytes Absolute Auto 2.3 X10*3/uL (1.2-4.9); Mean Corpuscular HGB Conc 34.3 g/dl (31.0-35.0); Mean Corpuscular Hemoglobin 30.1 pg (27.0-33.0); Mean Corpuscular Volume 87.6 fL (80.0-98.0); Mean Platelet Volume 9.9 fL (9.4-12.3); Monocytes Absolute Auto 0.6 X10*3/uL (0.1-1.2); Monocytes Percent Auto 9.1 % (2-11); Neutrophils Absolute Auto 3.4 x10*3/uL (2.0-8.3); Neutrophils Percent Auto 51.8 % (45-73); Platelet Count 288 X10*3/uL (160-400); Red Blood Count 4.52 X10*6/uL (4.20-5.50); Red Cell Distribution Width 12.5 % (11.0-16.0); White Blood Count 6.6 X10*3/uL (4.8-10.8)
[2024-12-05 11:27] LABS: Estimated Average Glucose 111 mg/dL; Hemoglobin A1c % 5.5 % (<6.0)
[2024-12-05 12:24] LABS: Alanine Aminotransferase 24 U/L (0-31); Albumin Level 4.5 g/dL (3.5-5.0); Alkaline Phosphatase 70 U/L (39-117); Anion Gap 12 (12-20); Aspartate Amino Transferase 20 U/L (5-31); Bilirubin Total 0.8 mg/dL (0.0-1.0); Blood Urea Nitrogen 13 mg/dL (9-16); Calcium 9.3 mg/dL (8.4-10.2); Carbon Dioxide 27 mmol/L (22-29); Chloride 109 mmol/L (96-108); Cholesterol 153 mg/dL (<200); Estimated Glomerular Filt Rate > 60; Glucose Random 104 mg/dL (60-115); HDL Cholesterol 43 mg/dL (>40); LDL Cholesterol Calculated 87 mg/dL (<100); Potassium 4.1 mmol/L (3.3-5.1); Sodium 144 mmol/L (135-145); Total Protein 7.3 g/dL (6.5-8.0); Triglycerides 115 mg/dL (<150)
[2024-12-05 12:46] LABS: TSH reflex Free T4 1.71 uIU/mL (0.32-4.0)
== END 2024-12-05 09:07 | disposition home or self-care (01) ==
LOC: HO.LAB 09:06
PROVIDERS: PCP Internal Medicine; Visit Provider Internal Medicine
DX: M25.551 Pain in right hip (principal); I10 Essential (primary) hypertension; E78.5 Hyperlipidemia, unspecified; R73.09 Other abnormal glucose; R10.2 Pelvic and perineal pain; E66.812 Obesity, class 2; Z13.0 Encounter for screening for diseases of the blood and blood-forming organs and certain disorders involving the immune mechanism; Z68.38 Body mass index [BMI] 38.0-38.9, adult
CPT/HCPCS: 36415; 73502; 80053; 80061; 83036; 84443; 85025; 96127

== ENCOUNTER → 2024-12-05 10:07 | Outpatient (BNV) | payer OTHER, SELFPAY | PROVIDERS: PCP Internal Medicine; Visit Provider Radiology Diagnostic Radiology | DX: M25.551 Pain in right hip (principal) | CPT/HCPCS: 73502 ==

== ENCOUNTER 2025-05-19 10:18 | Outpatient (AMB) | payer OTHER, SELFPAY ==
--- NOTE | 2025-05-19 10:20 | MHC.PC.OV ---
Vital Signs 05/19/25 10:29 Height 5 ft 8.78 in Weight 241 lb BMI 35.8 BP 120/82 Blood Pressure Location Lt brachial Position Sitting Respiration 18 Pulse 73 Pulse Source Pulse Oximeter Temp 98.2 F Temp Source Temporal Artery Scan Pulse Oximetry (%) 97 Oxygen Delivery Method Room Air Intake Visit Reasons: LUIS ANTONIO/Dr Benitez Advertisement Distributor Required: No Accompanied by: Self / Same As Patient Allergies No Known Allergies Allergy (Verified 05/19/25 10:21) Tobacco use date assessed: 12/05/24 Dental Screening Dental Screen Date: 12/05/24 HPI HPI Comments History of Present Illness Details The patient is a 64-year-old female presenting for a six-month follow-up visit. She has a history of hypertension, hyperlipidemia, and asthma, for which she uses albuterol as needed without a formal diagnosis. She denies a history of diabetes. For anxiety, the patient uses Ativan infrequently for stressful situations. A long time ago, she was trialed on another medication, possibly alprazolam, but it was discontinued due to heart racing. She is no longer taking Ambien for sleep and currently uses cannabis. Regarding weight management, the patient started on semaglutide at the end of January. She has been titrating the dose and is currently on 0.85, administered via subcutaneous injection into her thigh. She reports difficulty with the physical act of self-injection. Since starting the medication, her weight has decreased from 263 pounds to 241 pounds. She reports experiencing some constipation but denies nausea or abdominal pain. Her last cholesterol panel in November of this year showed an LDL of 87, and she takes atorvastatin. She also takes gabapentin for pain, lisinopril for blood pressure, and vitamin D. Recently, she has experienced some lightheadedness and dizziness upon standing. Medical History: - Hypertension - Hyperlipidemia - Asthma - Anxiety - Obesity - Insomnia Medications: - Albuterol as needed for asthma - Atorvastatin for hyperlipidemia - Vitamin D supplementation - Gabapentin for pain - Ativan for anxiety, used infrequently - Semaglutide 0.85 for weight loss - Lisinopril 10 mg for hypertension - Cannabis for sleep Diagnostic Results: - Labs: Cholesterol panel in November showed LDL of 87. - Weight: Decreased from 263 lbs to 241 lbs. Social History: - Employment: The patient is retired from a 39-year career in [employer]. - Exercise: The patient is not currently active but is trying to walk more. - Substance Use: The patient uses cannabis for sleep. - Diet: The patient reports she is eating healthy. - Caffeine Intake: The patient limits caffeine intake to the morning. [facility] Medical History (Updated 05/19/25 @ 11:12 by Jason Cline MD) Insomnia Asthma Anxiety Seasonal asthma Hyperlipemia HTN (hypertension) Colon cancer screening Surgical History (Updated 05/18/25 @ 15:46 by Lauren Franklin) Hx of colonoscopy (~11/07/22) Hx of foot surgery Family History Mother No problems noted. Father No problems noted. Social History Household Members: Children Housing: House Alcohol intake: current Alcohol intake frequency: holidays/special occasions only Patient Tobacco Use Status: Never used Tobacco e-Cigarette/Vaping Use: Never Used service: No Current occupational status: retired Cognitive needs: No Hearing needs: No Vision needs: Yes (rx glasses) Questionnaire Thrive Questionnaire Date Thrive assessed: 12/05/24 HOLA-7 AMB Questionnaire HOLA-7 Date HOLA - 7 assessed: 12/05/24 Source: Developed by Drs. Mario Aguirre, Maria M Parada, Matias Goode and colleagues, with an educational pamela from [employer]. Review of Systems Narrative - General: Denies feeling hot or cold. - Cardiovascular: Denies heart racing, though had it with a prior medication. - Gastrointestinal: Reports mild constipation. - Denies nausea and abdominal pain. - Neurological: Reports occasional lightheadedness and dizziness upon standing. - Psychiatric: Reports anxiety during stressful times. - Musculoskeletal: Denies leg swelling. All systems reviewed & are unremarkable except as reviewed in HPI and above Physical exam (Primary Care) Vital Signs: Last Vital Signs Temp 98.2 F 05/19/25 10:29 Pulse 73 05/19/25 10:29 Resp 18 05/19/25 10:29 BP 120/82 05/19/25 10:29 Pulse Ox 97 05/19/25 10:29 Oxygen Delivery Method Room Air 05/19/25 10:29 BMI result Body Mass Index 35.8 Tobacco/Smoking Status: Tobacco use Status Tobacco use date assessed 12/05/24 05/19/25 10:23 Patient Tobacco Use Status Never used Tobacco 05/19/25 10:23 e-Cigarette/Vaping Use Never Used 05/19/25 10:23 Thrive Assessment: Date of Thrive Assessment Date Thrive assessed 12/05/24 05/19/25 10:23 Narrative General: +Alert and oriented, Well nourished, No acute distress. Eye: Pupils are equal, round and reactive to light, Intact accommodation, Extraocular movements are intact, Normal conjunctiva, Vision unchanged. HENT: Normocephalic, Atraumatic, Tympanic membranes are clear, Normal hearing, Oral mucosa is moist, No pharyngeal erythema, Ear canals patent. Respiratory: Lungs CTA bilaterally, No wheeze, Respirations are non-labored. Cardiovascular: Regular rate, Regular rhythm, S1 auscultated, S2 auscultated, No murmur, Good pulses equal in all extremities, Normal peripheral perfusion, No edema. Gastrointestinal: Soft, Non-tender, Non-distended, Normal bowel sounds, No organomegaly. Musculoskeletal: Normal range of motion, Normal strength, No tenderness, No swelling, No deformity, Normal gait. Integumentary: Warm, Dry, [place], Intact. Neurologic: Alert, Oriented, Normal sensory, Normal motor function, No focal defects, Cranial Nerves II-XII are grossly intact, Normal deep tendon reflexes. Psychiatric: Cooperative, Appropriate mood & affect, Normal judgment. Coding Level of Care Code Est Pt Level 4 (20295) Complex EM visit Add On G2211 Diagnoses Anxiety F41.9 Obesity, Class II, BMI 35-39.9 E66.812 Primary hypertension I10 Hypertension type: primary hypertension Hyperlipidemia, unspecified hyperlipidemia type E78.5 Hyperlipidemia type: unspecified Asthma, unspecified asthma severity, unspecified whether complicated, unspecified whether persistent J45.909 Asthma severity: unspecified severity Asthma persistence: unspecified Asthma complication type: unspecified Insomnia, unspecified type G47.00 Insomnia type: unspecified Assessment & Plan Assessment & Plan (1) Anxiety: Comment: - The patient reports using Ativan sparingly for anxiety. - She was counseled on the risks of benzodiazepines, including dependence, dementia, and falls. - Plan is to transition her to buspirone twice daily, a safer alternative that treats the underlying anxiety. - The prescription will be sent to her pharmacy, and she was informed about potential initial side effects like feeling woozy. Code(s): F41.9 - Anxiety disorder, unspecified Category: Medical (2) Obesity, Class II, BMI 35-39.9: Comment: - The patient is being treated with semaglutide (generic Ozempic) and has achieved significant weight loss of 22 pounds. - She reports constipation, which is a known side effect. - Plan includes continuing semaglutide, encouraging dietary changes and physical activity, and considering MiraLax for constipation. - Thyroid function will be monitored via a TSH blood test today and every six months while on this medication due to potential side effects. - The patient was counseled on red flag symptoms, such as severe abdominal pain (pancreatitis) and symptoms of thyroid dysfunction. Code(s): E66.812 - Obesity, class 2 Category: Medical (3) HTN (hypertension): Comment: - The patient's blood pressure is managed with lisinopril 10 mg. - She reports recent episodes of lightheadedness, which may be due to her blood pressure dropping secondary to weight loss. - Plan is for her to monitor her blood pressure at home, with a potential reduction in her lisinopril dose if she is becoming hypotensive. Code(s): I10 - Essential (primary) hypertension Category: Medical Qualifiers: Hypertension type: primary hypertension Qualified Code(s): I10 - Essential (primary) hypertension (4) Hyperlipemia: Comment: - Her cholesterol is well-controlled on atorvastatin, with a recent LDL of 87. - Plan is to continue current management. Code(s): E78.5 - Hyperlipidemia, unspecified Category: Medical Qualifiers: Hyperlipidemia type: unspecified Qualified Code(s): E78.5 - Hyperlipidemia, unspecified (5) Asthma: Comment: - The patient uses albuterol as needed without a formal diagnosis. - Her condition appears stable. - Plan is to continue albuterol as needed. Code(s): J45.909 - Unspecified asthma, uncomplicated Category: Medical Qualifiers: Asthma severity: unspecified severity Asthma persistence: unspecified Asthma complication type: unspecified Qualified Code(s): J45.909 - Unspecified asthma, uncomplicated (6) Insomnia: Comment: - The patient has transitioned from Ambien to cannabis for sleep. - We discussed the importance of sleep hygiene, including limiting screen time and caffeine. - Plan is to continue with behavioral modifications. Code(s): G47.00 - Insomnia, unspecified Category: Medical Qualifiers: Insomnia type: unspecified Qualified Code(s): G47.00 - Insomnia, unspecified Plan: Health Maintenance: - Thyroid Monitoring: Due to semaglutide use, a TSH blood test was ordered for today, with a plan to monitor every 6 months. - Immunizations: Advised to get COVID and flu shots. - Lifestyle Counseling: Discussed the importance of continued healthy eating and increasing physical activity, not just for weight management but also for mental stimulation and prevention of cognitive decline. - Sleep Hygiene: Advised on behavioral changes for improved sleep, such as turning off phones before bed and limiting caffeine. - Medication Safety: Discussed risks of Ativan and red flag symptoms to watch for with semaglutide (severe abdominal pain, signs of thyroid dysfunction). - Follow-up: Plan to schedule a follow-up visit in 6 months. Patient was informed and verbally consented to the use of an ambient scribe for clinic note documentation during this visit. Plan I discussed with the patient my recommendation to transition from Ativan to buspirone for her anxiety. I explained that while Ativan provides temporary sedation, it carries significant risks such as dependence, falls, and dementia, and does not treat the underlying issue. I informed her that buspirone is a safer, non-sedating medication that works to resolve the root cause of anxiety over time. We reviewed her progress on semaglutide for weight loss, acknowledging her success while emphasizing that it is a tool to be used alongside continued diet and exercise. I explained the need for regular thyroid monitoring every six months while on this medication and ordered a TSH today. I provided anticipatory guidance on potential serious side effects, instructing her to go to the emergency room for severe abdominal pain (a sign of pancreatitis) and to be aware of symptoms of thyroid dysfunction. Given her reported lightheadedness and significant weight loss, I discussed the possibility that her blood pressure may be too low. I instructed her to monitor her blood pressure at home and to follow up with us, as we may need to adjust her lisinopril. I also advised her to get her COVID and flu vaccinations and scheduled a follow-up for a physical in six months. Orders: Orders TSH reflex Free T4 Today E66.812 - Obesity, class 2 Medications: New buspirone 5 mg PO BID 60 tabs 3RF 30 days Patient Instructions: - You will be started on a new medication called buspirone for anxiety, which you will take twice a day. - Use your remaining Ativan pills only if absolutely necessary during very stressful times. - Continue taking your semaglutide injection for weight loss. - If you experience mild constipation, you can try an [id number] medication like MiraLax. - Go to the emergency room immediately if you develop severe belly pain. - Watch for signs of thyroid problems, such as your heart racing, feeling very hot or cold, or feeling unusually slow and sluggish. - Check your blood pressure at home regularly. - Contact us if you often feel lightheaded or dizzy, as your blood pressure medication may need to be adjusted. - Continue with your healthy eating habits and try to increase your physical activity, such as walking. - Please get your COVID and flu shots. - Go across the hair today to have your blood drawn for a thyroid test. - We will schedule your next follow-up appointment for six months from now.
[2025-05-19 10:29] VITALS: BP 120/82; PULSE 73; RESP 18; TEMP 36.8; O2SAT 97; BMI 35.8
--- OUTSIDE RECORDS SUMMARY | 2025-05-19 11:50 | XMS_ITS | Patient Health Record ---
Author Organization [facility] [place] Address [address] [place] [address] Care Team Providers Care Yoker Name Role Phone Ori Benitez MD Primary Care Provider Unavaila Justin Amezquita Unavailable [phone] Reason For Referral No Information Medications Medication SIG (Take, Route, Frequency, Duration) Notes Start Date End Date Status Work Note . . . 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 . . 2-3x/week; Duration: 3-4 weeks 02/18/2019 Active LORazepam Active Lisinopril Active Clobetasol Propionate Active Neurontin 300 MG 1 capsule Orally Onc e a day at night; Duration: 30 day(s) 06/04/2019 Active Walking Boot/Pneumatic As directed Wear Daily; Duration: Until further notice 06/04/2019 Active Night Splint AFO - L1930 as directed 06/04/2019 Active Atorvastatin Calcium Active Ambien Active Triamcinolone Acetonide Not-Taking Work Note . . . 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 . . Medically necess anne to wear comfortable shoes (sneakers) at work; Duration: as needed Active Immunizations Vaccine Route Administration Date Status Comme nts Influenza Unknown 05/03/2018 Administered Social History Tobacco Use: Social History Observation Description Date Details (start date - stop date) Never Smoker NA - NA Tobacco Use/Smoking Question Answer Notes Are you a: nonsmoker Additional Findings: Tobacco Non-User Current no n-smoker Alcohol Screen Question Answer Notes Did you have a drink contain ing alcohol in the past year? Yes How often did you have a dri nk containing alcohol in the past year? Monthly or less (1 point) How many drinks did you have on a typical day when you were drinking in the past year? 1 or 2 drinks (0 point) How often did you have 6 or more drinks on one occasion in the past year? Never (0 point) Points 1 Interpretation Negative Tobacco use other than smoking: Question Answer Notes Are you an other tobacco user? No Problems Problem Type SNOMED Code ICD Code Onset Dates Problem Status W/U Status Risk Notes Problem Plantar fascial fibromatosis (20999266) Plantar fascial fibromatosis (M72.2) Active confirmed Plan Of Treatment Pending Test Test Name Order Date ,S4030-SCS TENDON SHEATH/LIGAMENT 0 10/23/201497387,[id number]-YIZ TENDON SHEATH/LIGAMENT 0 12/11/201436291,[id number] TENDON SHEATH/LIGAMENT 0 01/05/201500009,L8321-GKZ TENDON SHEATH/LIGAMENT 1 50,C8159-CNT TENDON SHEATH/LIGAMENT 1 07/21/201705790,S5518-IFR TENDON SHEATH/LIGAMENT 1 08/12/2017 Insurance Providers Payer Name Payer Address Payer Phone Subscriber Number Group Number Insured Name Patient Relationship to Insured Coverage Start Date Coverage End Date [facility] [address] [place] [address] [id number] Nita Rubio Self - patient is the insured Medical (General) History Medical History History ICD Code High blood pressure Psoriasis Cholesterol Anxiety Surgical History Surgery Date(Month/Year) [place] Plantar Fasciitomy 05/19/2015 [place] Plantar Faciiotomy 10/16/2018 Plantar Fasciiotomy w/topaz, amniofix
== END 2025-05-19 10:59 | disposition home or self-care (01) ==
LOC: HO.HMCHD 10:19
PROVIDERS: PCP Student in an Organized Health Care Education/Training Program; Visit Provider Student in an Organized Health Care Education/Training Program
DX: F41.9 Anxiety disorder, unspecified (principal); E66.812 Obesity, class 2; I10 Essential (primary) hypertension; E78.5 Hyperlipidemia, unspecified; J45.909 Unspecified asthma, uncomplicated; G47.00 Insomnia, unspecified

== ENCOUNTER 2025-05-19 11:00 | Outpatient (REF) | payer OTHER, SELFPAY | END 2025-05-19 11:01 | disposition home or self-care (01) | LOC: HO.10HDL 11:00 | PROVIDERS: Visit Provider Student in an Organized Health Care Education/Training Program | DX: E66.812 Obesity, class 2 (principal); Z13.29 Encounter for screening for other suspected endocrine disorder | CPT/HCPCS: 36415; 84443 ==

== ENCOUNTER 2025-05-25 08:25 | Outpatient (REF) | payer OTHER, SELFPAY ==
--- NOTE | ~2025-05-25 | MM_ITS ---
EXAMINATION: MM DIAGNOSTIC DIGITAL BREAST TOMOSYNTHESIS, BILATERAL CLINICAL INFORMATION: This is a 6-month follow-up of right breast asymmetry in the superior breast posterior depth on the MLO view. This asymmetry was first described on the screening mammogram on March 17, 2024. On November 19, 2024, the asymmetry had mildly decreased in size and the ultrasound correlate was not longer seen. COMPARISON: Comparison made to multiple prior, most recent right diagnostic mammogram on November 19, 2024, and most remote November 13, 2016. TECHNIQUE: Digital breast tomosynthesis is performed in both the mediolateral oblique and craniocaudal views along with computer-aided detection (CAD). Synthesized 2D images are generated from the tomosynthesis. FINDINGS: BREAST COMPOSITION: The breasts are heterogeneously dense, which may obscure small masses. RIGHT BREAST: Previously suggested asymmetry in the upper breast posterior depth on the MLO view measures 0.7 cm and is identified at 13.4 cm from the nipple on the MLO image 27/73; this is stable in size from spot compression in May 2024. No new masses, suspicious calcifications or other abnormalities are seen. LEFT BREAST: No significant masses, suspicious calcifications or other abnormalities are seen. MM/MM tomosynthesis diagnostic BI IMPRESSION: RIGHT BREAST: Asymmetry in the upper breast posterior depth on the MLO view, similar to May 2024. No sonographic correlate in the last ultrasound study. Probably benign. A one year diagnostic mammogram is recommended. LEFT BREAST: Negative, no mammographic evidence of malignancy. Normal interval follow-up is recommended in 12 months. ASSESSMENT: BI-RADS: Category 3: Probably benign RECOMMENDATION: 12 month diagnostic follow up Results were provided to the patient at time of visit by the technologist. This patient's information was entered into a reminder system with a target due date for their next mammogram. Electronically signed by: Chemo Hernandez MD 05/25/2025 09:42 AM [facility]
== END 2025-05-25 08:26 | disposition home or self-care (01) ==
LOC: HO.MAMMO 08:25
PROVIDERS: PCP Student in an Organized Health Care Education/Training Program; Visit Provider Internal Medicine
DX: N64.1 Fat necrosis of breast (principal)
CPT/HCPCS: 77062; 77066

== ENCOUNTER → 2025-05-25 08:46 | Outpatient (BNV) | payer OTHER, SELFPAY | PROVIDERS: PCP Student in an Organized Health Care Education/Training Program; Visit Provider Radiology Body Imaging | DX: R92.8 Other abnormal and inconclusive findings on diagnostic imaging of breast (principal) | CPT/HCPCS: 77062; 77066 ==